=== PATIENT | female | born 1950 | race Caucasian/White ===

== ENCOUNTER 2017-06-08 07:33 | Day surgery (SDC) | payer OTHER ==
[~2017-06-08] VITALS: Ht 162.6 cm; Wt 83.9 kg
[~2017-06-08 07:33] MED LIST: ASPI-973 PO; LISI2.5T PO; METF500T7 PO; OMEP20TA24 PO; SIMV40TA5 PO; TRIA1TAB2 PO
[2017-06-08] MEDS ORDERED: fentaNYL-PF 50 mCg/mL 2 mL Inj IVPUSH PRN (07:45)
[2017-06-08] MEDS ORDERED: 0.9% Sodium Chloride 1,000 ML IV PRN (07:45)
[2017-06-08] MEDS ORDERED: Sodium Chloride LOK Flush 10 mL Syringe IV PRN (07:45)
[2017-06-08] MEDS ORDERED: UBID100C25 PO (08:08)
[2017-06-08] MEDS ORDERED: MULT-1018 PO (08:08)
[2017-06-08 08:16] VITALS: BP 132/86; PULSE 88; O2SAT 97
--- NOTE | 2017-06-08 09:15 | PCM.ENDEGD ---
EGD Date of Service: Jun 08, 2017 Physician Nathaniel Frances MD Pre Procedure Diagnosis: Reflux Post Procedure Dx & Findings: Hiatal hernia possible Toscano's esophagus gastritis fundic polyps Procedure Esophagogastroduodenoscopy PROCEDURE IN DETAIL: After proper sedation, Olympus video endoscope was inserted into patient's mouth and esophagus was successfully intubated. Scope introduced esophagus. Esophagus showed normal shiny whitish mucosa consistent with squamous cell component. Z line was at 35 cm from the incisors. There was a < 2 cm hiatal hernia. There was also possible displacement of the GE junction and possible Toscano noted slightly less than 2 cm in length. Four-quadrant biopsies were obtained every 2 cm. Narrow banding used. No ulcer mass erosion nodule or mucosal abnormality noted. Scope further advanced to the stomach. Stomach showed mild atrophy and redness consistent mild gastritis. Biopsies obtained. Multiple fundic polyps noted from the fundus to the distal body of the stomach. The largest was probably about up to 1.5 centimeters in size. Sampling biopsies obtained. Cardia fundus body antrum pylorus were all visualized. Retroflexion was done. Stomach was easily inflated and deflatable using air. Scope further advanced the distal duodenum. Duodenum revealed normal villous structures with normal appearing folds without any mass ulcer erosion. Impression Hiatal hernia possible Toscano's esophagus gastritis fundic polyps Recommendation Await biopsies Presedation Assessment Risks and Benefits Informed consent was obtained from the patient after all risks and benefits including but not limited to drug reaction, infection, pain, bleeding, perforation, as well as alternatives were discussed. Patient monitoring Continuous pulse oximetry, cardiac monitoring, blood pressure monitoring, IV access, and oxygen at 2L per nasal cannula. Periprocedural Fentanyl: Fentanyl 200mcg Incrementally Midazolam: Midazolam 10mg Incrementally Complications There were no periprocedural complications identified. Post Procedure Plan Post Procedure Recommendations 1. Restrict activities today. 2. Resume normal activities in the morning. 3. Resume medications. 4. GERD behavioral modification: - Avoid fatty, acidic, spicy, large meals - Do not lie down after meals - Do not eat or drink anything for at least 2 1/2 hours before going to bed at night - Discontinue tobacco and alcohol - Decrease or avoid caffeine - Avoid chocolate and mints - Decrease weight - Avoid aspirin and non steroidal anti-inflammatory agents (NSAID) such as Aleve, Advil, Mobic, Naproxen, Ibuprofen, etc 5. Add proton pump inhibitor. Take 30 minutes before 1st meal of the day. 6. Patient informed of normal post procedure side effects as bloating, drowsiness, blood streaking in the stool 7. If gastric biopsy reveal H.pylori, continue with appropriate treatment 8. If small bowel biopsy reveals celiac, continue with appropriate treatment 9. Please don't hesitate to call me with any questions Nathaniel Frances MD Jun 08, 2017 09:15
[2017-06-08 09:16] VITALS: BP 126/73; PULSE 85; RESP 16; O2SAT 96
--- NOTE | 2017-06-08 09:16 | PCM.ENDCOL ---
Colonoscopy Date of Service: Jun 08, 2017 Physician Nathaniel Frances MD Pre Procedure Diagnosis: Screening Post Procedure Dx & Findings: Polyp hemorrhoids diverticulosis Procedure Colonoscopy PROCEDURE IN DETAIL: Prep adequate Withdrawal time 13 minutes After unremarkable rectal examination the Olympus video colonoscope was inserted patient's anal canal and was advanced to cecum. Landmarks were identified including the ileocecal valve and appendiceal orifice. Scope was withdrawn systematically. Visualized colonic mucosa showed healthy shiny mucosa with normal healthy-appearing vasculature. In the transverse colon, there was a 5 mm flat polyp which was removed completely using cold snare. In the sigmoid colon there are several small sized diverticuli. In the rectum retroflexion was done which showed hemorrhoids. Anal canal was inspected carefully on the way out and hemorrhoids noted. Impression Polyp 1 status post complete removal Diverticuli Hemorrhoids Recommendation Repeat colonoscopy 5 years Diverticular diet Presedation Assessment Risks and Benefits Informed consent was obtained from the patient after all risks and benefits including but not limited to drug reaction, infection, pain, bleeding, perforation, as well as alternatives were discussed. Patient monitoring Continuous pulse oximetry, cardiac monitoring, blood pressure monitoring, IV access, and oxygen at 2L per nasal cannula. Complications There were no periprocedural complications identified. Post Procedure Plan Post Procedure Recommendations 1. Restrict activities today. 2. Resume normal activities in the morning. 3. Resume medications. 4. Patient informed of normal post procedure side effects as bloating, drowsiness, blood streaking in the stool. 5. average risk CRCS. If colon polyps come back as: -Hyperplastic- can repeat colonoscopy in 10 years -Tubular adenoma- repeat colonoscopy in 5 years -Tubulovillous/villous adenoma- repeat colonoscopy in 3 years -If any dysplasia- return to clinic as soon as possible 6. Please don't hesitate to call me with any questions. Nathaniel Frances MD Jun 08, 2017 09:16
[2017-06-08 09:26] VITALS: BP 122/69; PULSE 79; RESP 16; O2SAT 97
[2017-06-08 09:40] VITALS: BP 117/68; PULSE 73; RESP 16; O2SAT 96
--- NOTE | 2017-06-09 15:14 | PATH ---
SURGICAL PATHOLOGY Attending Physician:Nathaniel Frances M.D. CASE STATUS: Signed Out PATIENT NAME: OMARI GUERRERO PID: [id number] : 1950 DATE COLLECTED:06/08/2017 16:29 SPECIMEN: 1: Esophagus, Biopsy 2: Gastric, Biopsy 3: Stomach, Polyp, Biopsy 4: Colon, Polyp CLINICAL HISTORY: 1). DISTAL ESOPHAGUS BIOPSY 2). GASTRIC BIOPSY (RULE OUT POSSIBLE H.PYLORI) 3). FUNDAL POLYP 4). TRANSVERSE COLON POLYP FINAL DIAGNOSIS: 1. Distal Esophagus, Biopsy: Squamocolumnar junctional mucosa with no diagnostic abnormality. Negative for intestinal metaplasia. Negative for dysplasia and malignancy. 2. Gastric Biopsy: Portions of gastric body-type mucosa with mild chronic gastritis. No definite H. pylori organisms identified by H&E stain. Immunohistochemistry studies pending; Results will be reported as an addendum. Negative for intestinal metaplasia, dysplasia, and malignancy. 3. Fundal Polyps, Biopsies: Portions of gastric body-type and antral mucosa with focal features of fundic gland polyp. Negative for intestinal metaplasia, dysplasia, and malignancy. 4. Transverse Colon, Polyp, Biopsy: Sessile serrated adenoma. ICD10: K63.5 GROSS DESCRIPTION: The specimen is received in four formalin filled containers labeled with the patient's name. 1). The specimen is labeled "distal esophagus" and consists of 3 portions of tissue which aggregate to 0.3 x 0.3 x 0.2 CM. The specimen is entirely submitted in cassette 1A. 2). The specimen is labeled "gastric" and consists of 3 portions of tissue which aggregate to 0.3 x 0.3 x 0.2 CM. The specimen is entirely submitted in cassette 2A. 3). The specimen is labeled "fundal polyps" and consists of 4 portions of tissue which aggregate to 0.4 x 0.4 x 0.2 CM. The specimen is entirely submitted in cassette 3A. 4). The specimen is labeled "transverse colon polyp" and consists of 4 portions of tissue which aggregate to 0.4 x 0.4 x 0.3 CM. The specimen is entirely submitted in cassette 4A. 06/08/2017DC ICD-9 CODES: CPT CODES: 1: 08049 2: 85766, 53344 3: 09465 4: 95828 PROCEDURE/ADDENDA: Addendum SPI Addendum Diagnosis 2. Gastric Biopsy: Negative for H. pylori organisms by immunohistochemistry studies. Addendum Comment {Not Entered} Electronically Signed Out Maricel Bruner MD Electronically Signed Out Maricel Bruner MD [facility] [address], [place] [address] Technical component performed at [facility], [address], [place], [address]
== END 2017-06-08 23:59 | disposition home or self-care (01) ==
LOC: END 07:33
PROVIDERS: ATTEND Internal Medicine
DX: Z12.11 Encounter for screening for malignant neoplasm of colon (principal); D12.3 Benign neoplasm of transverse colon; K57.30 Diverticulosis of large intestine without perforation or abscess without bleeding; K64.8 Other hemorrhoids; K29.50 Unspecified chronic gastritis without bleeding; K31.7 Polyp of stomach and duodenum; K44.9 Diaphragmatic hernia without obstruction or gangrene; E11.9 Type 2 diabetes mellitus without complications; I10 Essential (primary) hypertension; F41.8 Other specified anxiety disorders; E78.5 Hyperlipidemia, unspecified
CPT/HCPCS: 43239; 45385; 99153; G0500; J2250; J3010; J7030